=== PATIENT | male | born 1985 | race Caucasian/White ===

== ENCOUNTER 2020-10-10 02:25 | Emergency (ER) | payer SELFPAY ==
[~2020-10-10] VITALS: Ht 185.4 cm; Wt 76.2 kg
[~2020-10-10 02:25] MED LIST: LOMOTIL 0.025 M1 TAB PO
== END 2020-10-10 03:57 | disposition home or self-care (01) ==
LOC: ED 02:25
DX: S30.860A Insect bite (nonvenomous) of lower back and pelvis, initial encounter (principal); Z88.0 Allergy status to penicillin; Z79.899 Other long term (current) drug therapy; W57.XXXA Bitten or stung by nonvenomous insect and other nonvenomous arthropods, initial encounter; Y93.89 Activity, other specified; Y92.89 Other specified places as the place of occurrence of the external cause; Y99.8 Other external cause status